=== PATIENT | female | born 1950 | race Hispanic/Latino ===

== ENCOUNTER → 2017-07-26 | Day surgery (SDC) | payer MEDICARE ==
[2017-07-23 11:55] LABS: BASOPHILS % 0.4 % (0.0-1.0); EOSINOPHILS # (AUTO) 0.1 (0.0-0.4); HEMOGLOBIN 15.4 g/dL (12.0-16.0); LYMPHOCYTES # (AUTO) 3.1 (1.0-3.2); LYMPHOCYTES % 45.4 % (18.0-39.1); MEAN CORPUSCULAR HEMOGLOBIN 29.9 pg (28-32); MEAN CORPUSCULAR HGB CONC 33.5 g/dL (31-35); MEAN CORPUSCULAR VOLUME 89.3 fL (81-99); MONOCYTES # (AUTO) 0.5 (0.2-0.8); MONOCYTES % 7.3 % (4.4-11.3); NEUTROPHILS # (AUTO) 3.1 (2.1-6.9); NEUTROPHILS % 45.6 % (38.7-80.0); PLATELET COUNT 182 x10e3/uL (140-360); RED BLOOD COUNT 5.15 x10e6/uL (3.6-5.1); RED CELL DISTRIBUTION WIDTH 12.1 % (11.7-14.4)
[~2017-07-26] MED LIST: DEPAKOTE250 MG PO; DEPAKOTE500 MG PO; LYRICA50 MG PO; MIDAZOLAM HCL 2 MG/2 ML VIAL ONE; PROPOFOL IV EMULSION 10 MG/ML 20 ML VIAL ONE
== END | disposition home or self-care (01) ==
LOC: OR 07:41
PROVIDERS: ATTEND Internal Medicine Gastroenterology
DX: Z12.11 Encounter for screening for malignant neoplasm of colon (principal); K57.30 Diverticulosis of large intestine without perforation or abscess without bleeding; K64.8 Other hemorrhoids; N39.0 Urinary tract infection, site not specified; E66.3 Overweight; F31.9 Bipolar disorder, unspecified; Z01.810 Encounter for preprocedural cardiovascular examination; Z01.812 Encounter for preprocedural laboratory examination; Z68.29 Body mass index [BMI] 29.0-29.9, adult
CPT/HCPCS: 36415; 85025; 93005; G0121; J2250; 45378

== ENCOUNTER 2018-07-01 12:56 | Emergency (ER) | payer MEDICARE ==
[~2018-07-01] VITALS: Ht 160 cm; Wt 84.8 kg
[~2018-07-01 12:56] MED LIST changes: -MIDAZOLAM HCL 2 MG/2 ML VIAL ONE; -PROPOFOL IV EMULSION 10 MG/ML 20 ML VIAL ONE
--- OUTSIDE RECORDS SUMMARY | 2018-07-01 13:00 | XMS REPORT | Continuity of Care Document ---
Author Author [facility] [place] Address Unknown Phone Unavailable Problems Problem Status Onset Date Classification Date Reported Comments Source R10.32 - LEFT LOWER QUADRANT PAIN Active 09/09/2015 JOSEFINA Huang Medications Medication Details Route Status Patient Instructions Ordering Provider Order Date Source Allergies, Adverse Reactions, Alerts Substance Category Reaction Severity Reaction type Status Date Reported Comments Source Immunizations Immunization Date Given Site Status Last Updated Comments Source Results Order Name Results Value Reference Range Date Interpretation Comments Source Spine lumbar 2 or 3 views DX Spine lumbar 2 or 3 views DX EXAMINATION: Lumbar spine - 2 to 3 views HISTORY: M54.5 Low back pain; lumbar spondylosis FINDINGS: Frontal, lateral, and coned lateral views of the lumbar spine are performed and compared to 05/31/2009. There is minimal retrolisthesis of L2 on L3 and L3 on L4 with mild retrolisthesis of L4 on L5. The vertebral body heights are normal without compression fracture. There is new minimal L2-L3 through L3-L4 and progressive moderate to severe L4-L5 degenerative disc disease. The sacral ala appear intact. Cholecystectomy clips are noted. Multiple phleboliths project within the pelvis. IMPRESSION: 1. Minimal retrolisthesis of L2 on L3 and L3 on L4 with mild retrolisthesis of L4 on L5. 2. New minimal L2-L3 through L3-L4 and progressive moderate to severe L4-L5 degenerative disc disease. 09/16/2015 - - Read by: Bryan Perera MD Dictated Date/time: 09/16/15 12:44 Electronically Signed by: Bryan Perera MD 09/16/15 12:46 FINAL REPORT TORIN Huang Spine cervical 2 or 3 view DX Spine cervical 2 or 3 view DX EXAMINATION: Cervical spine - 2 to 3 views HISTORY: cervicalgia m54.2; cervical spondylosis FINDINGS: Frontal, lateral, and odontoid views of the cervical spine are performed and compared to 05/31/2009. There is minimal retrolisthesis of C5 on C6. There is no prevertebral soft tissue swelling. The lateral masses of C1 are well aligned with C2. There is no osseous central canal stenosis. There is mild C5-C6 degenerative disc disease. The remaining intervertebral disc spaces are normal. There is no substantial uncovertebral osteoarthritis. IMPRESSION: 1. Minimal retrolisthesis of C5 on C6 with unchanged mild C5-C6 degenerative disc disease. 09/16/2015 - - Read by: Bryan Perera MD Dictated Date/time: 09/16/15 12:43 Electronically Signed by: Bryan Perera MD 09/16/15 12:44 FINAL REPORT [facility]SAIN[facility]ukul [facility] Abdomen complete US Abdomen complete US EXAM: Abdomen complete US HISTORY: R10.32 Left lower quadrant pain COMPARISON: None FINDINGS: Liver: Measures 12 cm in length (normal: 13-17 cm). Echogenicity is unremarkable. Portal vein is patent with hepatopedal flow. Biliary: The gallbladder is absent. There is no biliary duct dilation. Mid common bile duct measures 4 mm in diameter. Pancreas: No focal lesion. However, certain portions are obscured by overlying bowel gas and unable to be evaluated. Spleen: Measures 7.5 cm in maximal dimension (normal < 13 cm). No focal lesion is seen. Kidneys: Right and left measure 11 and 10.9 cm in length, respectively (normal for age). No hydronephrosis, suspicious renal mass, or large shadowing stone. Vascular: Visualized portions of the IVC are patent. No obvious aneurysmal dilatation of the aorta. IMPRESSION: No significant abnormality. 09/16/2015 - - Read by: Arielle Bernstein MD Dictated Date/time: 09/16/15 13:38 Electronically Signed by: Arielle Bernstein MD 09/16/15 13:39 FINAL REPORT JOSEFINA Huang Pelvis Complete US Pelvis Complete US EXAM: Pelvis Complete US HISTORY: R10.32 Left lower quadrant pain COMPARISON: None Technique: Transabdominal Linn scale and color doppler with limited spectral doppler imaging of the uterus and ovaries. Findings: The uterus measures 7.2 x 2.7 x 3.7 cm. The endometrial stripe measures 0.2 cm. The right ovary is not visualized. The left ovary measures 1.7 x 1.1 x 1.8 cm with normal flow. No large masses are seen in the bilateral adnexa. There is no free fluid. The bladder is grossly unremarkable. IMPRESSION: Unremarkable pelvic ultrasound. 09/16/2015 - - Read by: Arielle Bernstein MD Dictated Date/time: 09/16/15 14:05 Electronically Signed by: Arielle Bernstein MD 09/16/15 14:12 FINAL REPORT JOSEFINA Huang Vital Signs Vital Sign Value Date Comments Source Encounters Location Location Details Encounter Type Encounter Number Reason For Visit Attending Provider ADM Date DC Date Status Source [facility] [id number] Lynnette Clifford 09/16/2015 09/17/2015 TORIN Huang Procedures Procedure Code Date Perfomer Comments Source
--- OUTSIDE RECORDS SUMMARY | 2018-07-01 13:00 | XMS REPORT | Summary of Care ---
Author Author [facility] [place] Organization [facility] [place] Address Unknown Phone Unavailable Encounter [facility]alias([facility] [id number] Date(s): 09/16/15 - 09/16/15 [facility] [place] [address] [place] [id number] [facility] [phone] Discharge Disposition: Home Attending Physician: Lynnette Clifford MD Vital Signs No data available for this section Problem List No data available for this section Allergies, Adverse Reactions, Alerts No data available for this section Medications No data available for this section Results No data available for this section Immunizations No data available for this section Procedures No data available for this section Social History No data available for this section Assessment and Plan No data available for this section
[2018-07-01 14:50] LABS: BILIRUBIN,URINE NEGATIVE (NEGATIVE); CLARITY,URINE SL CLOUDY (CLEAR); COLOR,URINE YELLOW (YELLOW); KETONES,URINE TRACE (NEGATIVE); LEUKOCYTE ESTERASE ,URINE NEGATIVE (NEGATIVE); NITRITE,URINE NEGATIVE (NEGATIVE); PROTEIN,URINE DIPSTICK NEGATIVE (NEGATIVE); URINE UROBILINOGEN 1 mg/dL (0.2 - 1)
[2018-07-01 15:00] LABS: BACTERIA,URINE MANY /HPF; EPITHELIAL CELLS,URINE MANY /LPF; TRANSITIONAL EPI CELLS,URINE MODERATE
== END 2018-07-01 14:25 | disposition short-term general hospital (02) ==
LOC: ER 12:56
DX: R11.10 Vomiting, unspecified (principal)
CPT/HCPCS: 81001

== ENCOUNTER 2019-02-28 02:46 | Emergency (ER) | payer MEDICARE ==
[~2019-02-28] VITALS: Ht 160 cm; Wt 84.8 kg
--- OUTSIDE RECORDS SUMMARY | 2019-02-28 02:50 | XMS REPORT ---
Author Author [facility] Address Unknown Phone Unavailable Care Team Providers Care Entry Operator Name Role Phone Unavailable Unavailable Problems This patient has no known problems. Allergies, Adverse Reactions, Alerts This patient has no known allergies or adverse reactions. Medications This patient has no known medications. Results Test Description Test Time Test Comments Text Results Atomic Results Result Comments BASIC METABOLIC PANEL 2019-02-13 00:00:00 SODIUM (BEAKER) (test kdgk=729) 137 meq/L 136-145 POTASSIUM (BEAKER) (test yeyv=495) 3.6 meq/L 3.5-5.1 CHLORIDE (BEAKER) (test fbwt=007) 104 meq/L 98-107 CO2 (BEAKER) (test fklc=920) 26 meq/L 22-29 BLOOD UREA NITROGEN (BEAKER) (test jlxh=214) 16 mg/dL 7-21 CREATININE (BEAKER) (test fjye=155) 0.69 mg/dL 0.57-1.25 GLUCOSE RANDOM (BEAKER) (test ctqo=646) 111 mg/dL 70-105 CALCIUM (BEAKER) (test opnx=852) 8.8 mg/dL 8.4-10.2 EGFR (BEAKER) (test lvtz=3055) INSUFFICIENT CLINICAL DATA TO CALCULATE ESTIMATED GFR. [id number] 23:44:00* Test Item Value Reference Range Comments LIPASE (BEAKER) (test hecr=221) 16 U/L 8-78 ALT (SGPT)2019-02-12 23:44:00* Test Item Value Reference Range Comments ALT (SGPT) (BEAKER) (test qxnu=734) 22 U/L 6-55 AST (SGOT)2019-02-12 23:44:00* Test Item Value Reference Range Comments AST (SGOT) (BEAKER) (test afoo=350) 29 U/L 5-34 BILIRUBIN, ADULT [id number] 23:44:00* Test Item Value Reference Range Comments BILIRUBIN TOTAL (BEAKER) (test gwvs=069) 0.5 mg/dL 0.2-1.2 CBC W/PLT COUNT & AUTO [id number] 23:22:00* Test Item Value Reference Range Comments WHITE BLOOD CELL COUNT (BEAKER) (test jnrt=509) 5.8 K/ L 3.5-10.5 RED BLOOD CELL COUNT (BEAKER) (test wqvs=544) 4.46 M/ L 3.93-5.22 HEMOGLOBIN (BEAKER) (test icwa=624) 13.9 GM/DL 11.2-15.7 HEMATOCRIT (BEAKER) (test iejc=652) 41.4 % 34.1-44.9 MEAN CORPUSCULAR VOLUME (BEAKER) (test lkwq=942) 92.8 fL 79.4-94.8 MEAN CORPUSCULAR HEMOGLOBIN (BEAKER) (test xikx=306) 31.2 pg 25.6-32.2 MEAN CORPUSCULAR HEMOGLOBIN CONC (BEAKER) (test aind=383) 33.6 GM/DL 32.2-35.5 RED CELL DISTRIBUTION WIDTH (BEAKER) (test fujj=963) 12.8 % 11.7-14.4 PLATELET COUNT (BEAKER) (test xohk=422) 174 K/CU MM 150-450 MEAN PLATELET VOLUME (BEAKER) (test qnms=920) 10.6 fL 9.4-12.3 NUCLEATED RED BLOOD CELLS (BEAKER) (test sdby=215) 0 /100 WBC 0-0 NEUTROPHILS RELATIVE PERCENT (BEAKER) (test skpq=079) 50 % LYMPHOCYTES RELATIVE PERCENT (BEAKER) (test giux=600) 37 % MONOCYTES RELATIVE PERCENT (BEAKER) (test zxum=546) 11 % EOSINOPHILS RELATIVE PERCENT (BEAKER) (test qnva=377) 2 % BASOPHILS RELATIVE PERCENT (BEAKER) (test znhu=232) 1 % NEUTROPHILS ABSOLUTE COUNT (BEAKER) (test orlf=770) 2.92 K/ L 1.56-6.13 LYMPHOCYTES ABSOLUTE COUNT (BEAKER) (test tgji=708) 2.17 K/ L 1.18-3.74 MONOCYTES ABSOLUTE COUNT (BEAKER) (test kxof=195) 0.62 K/ L 0.24-0.36 EOSINOPHILS ABSOLUTE COUNT (BEAKER) (test sjeg=945) 0.09 K/ L 0.04-0.36 BASOPHILS ABSOLUTE COUNT (BEAKER) (test momk=351) 0.03 K/ L 0.01-0.08 IMMATURE GRANULOCYTES-RELATIVE PERCENT (BEAKER) (test saku=2865) 0 % 0-1 RAD, ABDOMEN, 2 [id number] 22:28:00Reason for exam:->ABDOMINAL PAINReason for exam:->BACK PAINFINAL REPORT TECHNIQUE: Supine and upright views of the abdomen INDICATION: Abdominal pain and back pain. COMPARISON: None. FINDINGS/IMPRESSION: No distended loops of bowel. The ascending and descending colon contains a small amount of fecal matter. No evidence of free air. Bowel gas pattern is nonobstructive. Prior cholecystectomy. No normal ossifications. Partially imaged chest base is unremarkable. No acute osseous abnormality. Moderate degenerative disc disease of the lower lumbar spine. Signed: Logan Cochran MDReport Verified Date/Time: 02/12/2019 22:28:48
[2019-02-28 03:21] LABS: BASOPHILS % 0.3 % (0.0-1.0); EOSINOPHILS % 0.6 % (0.0-6.0); HEMATOCRIT 39.9 % (34.2-44.1); HEMOGLOBIN 13.7 g/dL (12.0-16.0); LYMPHOCYTES # (AUTO) 1.5 (1.0-3.2); LYMPHOCYTES % 21.2 % (18.0-39.1); MEAN CORPUSCULAR HEMOGLOBIN 31.3 pg (28-32); MEAN CORPUSCULAR HGB CONC 34.3 g/dL (31-35); MEAN CORPUSCULAR VOLUME 91.1 fL (81-99); MONOCYTES # (AUTO) 0.6 (0.2-0.8); MONOCYTES % 8.9 % (4.4-11.3); NEUTROPHILS # (AUTO) 4.9 (2.1-6.9); NEUTROPHILS % 68.9 % (38.7-80.0); PLATELET COUNT 189 x10e3/uL (140-360); RED BLOOD COUNT 4.38 x10e6/uL (3.6-5.1); RED CELL DISTRIBUTION WIDTH 12.2 % (11.7-14.4)
[2019-02-28 03:57] LABS: AMYLASE 81 U/L (25-125); LIPASE 17 U/L (8-78)
[2019-02-28 04:02] LABS: ALANINE AMINOTRANSFERASE 15 IU/L (0-55); ALBUMIN 3.4 g/dL (3.5-5.0); ALKALINE PHOSPHATASE 67 IU/L (40-150); ANION GAP 14.3 mmol/L (8-16); BLOOD UREA NITROGEN 10 mg/dL (7-26); BUN/CREATININE RATIO 15 (6-25); CALCIUM 8.8 mg/dL (8.4-10.2); CARBON DIOXIDE 22 mmol/L (22-29); CHLORIDE 106 mmol/L (98-107); CREATINE KINASE 111 IU/L (29-168); CREATININE, SERUM 0.68 mg/dL (0.57-1.11); EST GLOMERULAR FILTRATION RATE > 60 ML/MIN (60-); GLUCOSE 119 mg/dL (74-118); POTASSIUM 3.3 mmol/L (3.5-5.1); SODIUM 139 mmol/L (136-145)
[2019-02-28 04:20] LABS: BILIRUBIN,URINE NEGATIVE (NEGATIVE); CLARITY,URINE CLEAR (CLEAR); COLOR,URINE YELLOW (YELLOW); KETONES,URINE TRACE (NEGATIVE); LEUKOCYTE ESTERASE ,URINE NEGATIVE (NEGATIVE); NITRITE,URINE NEGATIVE (NEGATIVE); PROTEIN,URINE DIPSTICK NEGATIVE (NEGATIVE); URINE UROBILINOGEN 0.2 mg/dL (0.2 - 1)
[2019-02-28 04:33] LABS: BACTERIA,URINE FEW /HPF; EPITHELIAL CELLS,URINE FEW /LPF; WBC,URINE (MAN) 0-5 /HPF (0-5)
[2019-02-28] MEDS ORDERED: ONDANSETRON HCL INJ 2MG/ML 2ML 2 MG/ML VIAL IV STA (05:47)
[2019-02-28] MEDS ORDERED: ONDANSETRON HCL INJ 2MG/ML 2ML 2 MG/ML VIAL ONE (05:49)
[2019-02-28] MEDS ORDERED: CITRATE OF MAGNESIA 300ML BOTTLE PO ONE (06:30)
--- NOTE | 2019-02-28 06:31 | Diagnostic Imaging Report ---
EXAM: CT Abdomen and Pelvis WITHOUT contrast INDICATION: Constipation COMPARISON: None. TECHNIQUE: Abdomen and pelvis were scanned utilizing a multidetector helical scanner from the lung base to the pubic symphysis without administration of IV contrast. Absence of intravenous contrast decreases sensitivity for detection of focal lesions and vascular pathology. Coronal and sagittal reformations were obtained. Routine protocol was performed. IV CONTRAST: None ORAL CONTRAST: None COMPLICATIONS: None RADIATION DOSE: Total DLP: 1022 mGy*cm Estimated effective dose: (DLP x 0.015 x size factor) mSv CTDIvol has been reviewed. It is below the limits set by the Radiation Protocol Committee (RPC). Dose modulation, iterative reconstruction, and/or weight based adjustment of the mA/kV was utilized to reduce the radiation dose to as low as reasonably achievable. FINDINGS: LINES and TUBES: None. LOWER THORAX: There is bibasilar atelectasis. Trace pericardial fluid. HEPATOBILIARY: No focal hepatic lesions. No biliary ductal dilation. GALLBLADDER: There are cholecystectomy clips. SPLEEN: No splenomegaly. PANCREAS: No focal masses or ductal dilatation. ADRENALS: No adrenal nodules KIDNEYS/URETERS: No hydronephrosis. No cystic or solid mass lesions. No stones. Trace bilateral perinephric fat stranding. GI TRACT: No abnormal distention, wall thickening, or evidence of bowel obstruction. Numerous colonic diverticuli without evidence of diverticulitis. Appendix is normal. PELVIC ORGANS/BLADDER: Unremarkable. LYMPH NODES: No lymphadenopathy. VESSELS: There is mild atherosclerotic disease in the aorta and major arterial branches. PERITONEUM / RETROPERITONEUM: No free air or fluid. BONES: There are degenerative changes in the lumbar spine. SOFT TISSUES: Unremarkable. IMPRESSION: Moderate colonic stool burden can be seen with constipation. Extensive colonic diverticulosis without diverticulitis. Signed by: Anthony Klein DO on 02/28/2019 6:28 AM
[2019-02-28] MEDS ORDERED: COLACE100 MG PO (07:03)
--- NOTE | 2019-02-28 07:08 | NUR ---
REPORT GIVEN TO Codey GRAY RN DAY SHIFT NURSE.
[2019-02-28 07:24] VITALS: BP 136/73
== END 2019-02-28 07:26 | disposition home or self-care (01) ==
LOC: ER 03:08
DX: R10.31 Right lower quadrant pain (principal); R10.84 Generalized abdominal pain; K59.00 Constipation, unspecified
CPT/HCPCS: 36415; 74176; 80053; 81001; 82150; 82550; 82553; 83690; 84484; 85025; 93005; 99284; J2405